=== PATIENT | female | born 1950 | race Caucasian/White ===

== ENCOUNTER 2020-07-31 16:06 | Emergency (ER) | payer OTHER, SELFPAY ==
[2020-07-31 16:20] VITALS: PULSE 90; RESP 18; TEMP 36.9; O2SAT 99
[2020-07-31 16:28] VITALS: PULSE 90; RESP 18; TEMP 36.9; O2SAT 99
--- NOTE | 2020-07-31 16:32 | ED.GENADULT ---
HPI - General Adult General Chief complaint: Skin/Abscess/Foreign Body Stated complaint: rash Source: patient Mode of arrival: ambulatory Limitations: no limitations History of Present Illness HPI narrative: Patient presents for evaluation of irritation of the skin between the breasts for the last 3 days. She states she has had similar symptoms in the past with a heat rash over the summer. She states that she does tend to perspire excessively. She does not have an underlying history of diabetes. She purchased emuaid [id number] and states in the last 24 hours she has noted approximately one third reduction in her symptoms. No new lotions, soaps, detergents, topical products which could contribute to her symptoms. She indicates she wanted to ensure that she did not have cellulitis. No difficulty breathing or swallowing. Related Data Allergies Allergy/AdvReac Type Severity Reaction Status Date / Time cephalexin [From Keflex] Allergy Rash Verified 07/31/20 16:26 Penicillins Allergy Rash Verified 07/31/20 16:25 Sulfa (Sulfonamide Allergy Rash Verified 07/31/20 16:25 Antibiotics) Review of Systems Review of Systems: Narrative: CONSTITUTIONAL: Denies fever, chills, or sweats. EYES: Denies visual changes, redness, or discharge. ENT: Denies rhinorrhea, congestion, sore throat, or otalgia. CARDIOVASCULAR: Denies chest pain, palpitations, or edema. RESPIRATORY: Denies cough or dyspnea. GASTROINTESTINAL: Denies abdominal pain, nausea, vomiting, or diarrhea. GENITOURINARY: Denies dysuria or hematuria. SKIN: Reports pruritic and erythematous changes between the breasts MUSCULOSKELETAL: Denies back pain, joint pain, or myalgia. NEUROLOGIC: Denies headache, numbness, dizziness, or weakness. PSYCHIATRIC: Denies anxiety or depression. [facility] Past Medical History Medical History (Updated 07/31/20 @ 16:39 by Jair Payne, WANG, JONY) No pertinent past medical history Surgical History Surgical History History of carpal tunnel surgery of right wrist Status post left foot surgery Family History Family History Mother No pertinent past medical history Social History Social History Smoking status: Never smoker Alcohol intake: current Alcohol use details: rarely Substance use: never Living arrangements: alone Gender identity (if verbalized by the patient): Female Spiritual care concerns: No Exam Narrative: Exam Narrative: GENERAL: Well-appearing, well-nourished, and in no acute distress. HEAD: Normocephalic, atraumatic. EYES: PERRLA and EOMI. ENT: Nares clear, no rhinorrhea or epistaxis. Mucous membranes moist. Oropharynx without tonsillar hypertrophy exudate or other lesions. Bilateral TMs pearly talamantes nonbulging NECK: Supple. No adenopathy or masses. No carotid bruits or JVD CHEST: Clear to auscultation. No respiratory distress. No wheezes rales or rhonchi HEART: Regular rate and rhythm. No murmur heard. Normal peripheral pulses. ABDOMEN: Soft, nontender, nondistended, normal active bowel sounds. EXTREMITIES: Normal range of motion. No edema. SKIN: Multiple raised erythematous papules between both breasts, too numerous to count. NEURO: No focal deficits. Alert and oriented x3. PSYCH: Normal mood and affect. Course Course Emergency Course: Interview and physical exam was conducted. Informed patient that her symptoms are most consistent with tinea brought may also be a contact dermatitis and less likely cellulitis. Will try topical antifungal. In the event that she has no clinical improvement with that she may try a topical steroid. She does have multiple drug allergies, and therefore clindamycin will be selected for cellulitis that is unlikely. I asked patient to try topicals first and reserve antibiotic fill in the
== END 2020-07-31 16:44 | disposition home or self-care (01) ==
PROVIDERS: Emergency Provider Nurse Practitioner
DX: B35.4 Tinea corporis (principal)
CPT/HCPCS: 99203; G0463

== ENCOUNTER 2024-11-30 17:12 | Emergency (ER) | payer OTHER, SELFPAY ==
--- NOTE | 2024-11-30 17:28 | ED.SKABFB ---
HPI - Skin/Abscess/Foreign Bdy General Chief complaint: Skin/Abscess/Foreign Body Stated complaint: splinter Time Seen by Provider: 11/30/24 17:55 Source: patient Mode of arrival: ambulatory Limitations: no limitations History of Present Illness HPI narrative: Jemima is a 74-year-old female patient presenting to the clinic today with complaints a possible splinter and the right index finger. She reports that this occurred yesterday when she was trying to move a branch while she was mowing. States the branch came back and hit her and she saw a splinter go into her right dorsal index finger. States she put some drawing salve on it and woke up this morning and it was swollen and red and painful. Is concerned that the splinter still may be in her finger. Denies any fevers, chills, body aches. Related Data Allergies Allergy/AdvReac Type Severity Reaction Status Date / Time bacitracin (From Triple Allergy Mild Blister Verified 11/30/24 17:53 Antibiotic) neomycin (From Triple Allergy Mild Blister Verified 11/30/24 17:53 Antibiotic) polymyxin B (From Triple Allergy Mild Blister Verified 11/30/24 17:53 Antibiotic) cephalexin (From Keflex) Allergy Rash Verified 11/30/24 17:53 Penicillins Allergy Rash Verified 11/30/24 17:53 Sulfa (Sulfonamide Allergy Rash Verified 11/30/24 17:53 Antibiotics) Review of Systems Review of Systems: Pertinent positives per HPI. Patient denies any fever, chills, rash, headache, visual changes, dizziness, cough, runny nose, sore throat, shortness of breath, chest pain, palpitations, nausea, vomiting, diarrhea, constipation, abdominal pain, or any urinary issues. [facility] Past Medical History Medical History No pertinent past medical history Surgical History Surgical History Status post left foot surgery History of carpal tunnel surgery of right wrist Family History Family History Mother No pertinent past medical history Social History Social History Smoking status: Never smoker Alcohol intake: current Alcohol use details: rarely Substance use: never Living arrangements: alone Gender identity (if verbalized by the patient): Female Spiritual care concerns: No Comments At the time of my signature, I reviewed and agree with the nursing past medical, surgical, social, and family history. There is no relevant family history pertinent to the patient complaint. Exam Narrative: General: Well-developed, well nourished, in no apparent distress Head: Normocephalic, atraumatic. Cardio: Regular rate and rhythm, s1 and s2 normal, no murmur appreciated. Resp: Clear to auscultation bilaterally, no rhonchi, rales, wheezing or rubs. Musculoskeletal: No deformity, redness, swelling,-tender to palpation over the right index finger, small open area to the top of the dorsal finger in between the DIP and PIP joint that is weeping some clear fluid, no obvious foreign body seen in the skin when illuminating the skin using the otoscope, grossly normal range of motion, muscle strength strong and equal, peripheral pulse strong, no cyanosis, normal gait and station Course Course Emergency Course: Portions of this record may have been created with voice recognition software. Level of Care: Express Care Visit Vital Signs Vital signs: Vital Signs Temperature 36.7 C 11/30/24 17:51 Pulse Rate 82 11/30/24 17:51 Respiratory Rate 18 11/30/24 17:51 Blood Pressure 157/108 H 11/30/24 17:51 Pulse Oximetry 99 11/30/24 17:51 Oxygen Delivery Room Air 11/30/24 17:51 Temperature 36.7 C 11/30/24 17:51 Pulse Rate 82 11/30/24 17:51 Respiratory Rate 18 11/30/24 17:51 Blood Pressure 157/108 H 11/30/24 17:51 Pulse Oximetry 99 11/30/24 17:51 Oxygen Delivery Room Air 11/30/24 17:51 Vital signs reviewed MDM - Skin/Abscess/Foreign Bdy MDM Narrative Medical decision making narrative: At the time of visit patient is resting comfortably on the exam table. Patient appears to be nontoxic. Plan: No obvious splinter seen in right index finger. I suspect patient has skin infection/cellulitis to the right index finger. Prescription for doxycycline was sent to the pharmacy. Supportive measures were discussed with the patient and they voiced understanding discharge instructions and agrees to treatment plan. Return precautions reviewed Spoke to patient in regards to tetanus shot after she was discharged and she states that she will get one at the pharmacy when she picks up the prescription. Differential Diagnosis Differential diagnosis: Likely abscess of skin or subcutaneous tissue, cellulitis and other (Splinter) Discharge Plan Discharge Clinical Impression: Cellulitis Qualifiers: Site of cellulitis: extremity Site of cellulitis of extremity: finger Laterality: right Qualified Code(s): L03.011 - Cellulitis of right finger Patient Disposition: Home, Self-Care Condition: Stable Instructions: Antibiotic Form, Cellulitis (ED) Additional Instructions: Unable to visualize splinter in your finger May cover with Band-Aid as needed Keep wound clean and dry Rest, ice, and elevate May take Tylenol/Motrin as needed for pain Take doxycycline as prescribed Watch for signs and symptoms of infection- redness, streaking, swelling, purulent discharge, or increase in pain. Follow up with your PCP for suture removal or return to the Express care. Patient Language: Turkish Prescriptions: New doxycycline monohydrate 100 mg capsule 100 mg PO BID 7 Days Qty: 14 0RF Follow-up/Referrals: UNKNOWN,DOCTOR [Primary Care Provider] - Time of Disposition: 18:03 Quality NIHSS Nursing Documentation ED NIHSS nursing documentation: reviewed/agree
[2024-11-30 17:51] VITALS: BP 157/108; PULSE 82; RESP 18; TEMP 36.7; O2SAT 99
--- OUTSIDE RECORDS SUMMARY | 2024-11-30 19:10 | XMS_ITS | Clinical Summary ---
Author Organization [address] Address [facility]ly [facility] [place] [address] Care Team Providers Care Adjunct Art History Instructor Name Role Phone Dago Mccloud MD Primary Care Provider [phone] Allergies Active Allergy Reactions Criticality Noted Date Comments Cephalosporins Rash,Shortness of breath High Reaction: Rash, Short of breath, Penicillins Rash,Shortness of breath High Reaction: Rash, Short of breath, Medications vitamins A,C,and E-selenium (Antioxidant A/C/E/Selenium) capsule Rx: Antioxidant Acti ve clarithromycin (BIAXIN XL ORAL) 500 mg daily 7 Active estradiol (Climara) 0.025 mg/[address] on the skin Active progesterone (Prometrium) 100 mg capsule 100 mg daily Ac tive Active Problems Problem Noted Date Diagnosed Date Tendinopathy of rotator cuff 02/02/2016 Cellulitis of leg 01/26/2016 Essential (primary) hypertension 01/26/2016 OA (osteoarthritis) of shoulder 01/26/2016 Abnormal laboratory test result 07/30/2014 Arthralgia of hip 04/21/2014 Acquired hallux rigidus 11/14/2011 Hammer toe 11/14/2011 Pain of foot 11/06/2011 Surgical History Surgery Date Site/Laterality Comments FOOT SURGERY COSMETIC SURGERY HAND SURGERY AUGMENTATION MAMMAPLASTY 09/23/2003 - 09/22/2004 Bilater al saline Family History Medical History Relation Name Comments Arthritis Father Family history of arthritis - (Added by TW Conv) Heart disease Father Family history of cardiac disorder - (Added by TW Conv) Hypertension Father Family history of hypertension - (Added by TW Conv) Arthritis Mother Family history of arthritis - (Added by TW Conv) Heart disease Mother Family history of cardiac disorder - (Added by TW Conv) Hypertension Mother Family history of hypertension - (Added by TW Conv) Relation Name Status Comments Father Mother Social History Tobacco Use Types Packs/Day Years Used Date Smoking Tobacco: Former Smokeless Tobacco: Former Alcohol Use Standard Drinks/Week Comments Yes 0 (1 standard drink = 0.6 oz pur e alcohol) Comments No Sex and Gender Information Value Date Recorded Sex Assigned at Not on file Legal Sex Female 8:33 AM CERTIFIED NURSE PRACTITIONER Gender Identity Not on file Sexual Orientation Not on file Obstetrics History Para Term AB IAB SAB Ectopic Multiple Livin g Live Births 0 0 0 0 0 0 0 0 0 0 0 Last Filed Vital Signs Vital Sign Reading Time Taken Comments Blood Pressure 160/96 03/09/2020 10:25 AM CDT Pulse 71 03/09/2020 10:25 AM CDT Temperature 35.9 C (96.6 F) 03/17/2020 1:58 PM CDT Respiratory Rate - - Oxygen Saturation 97% 03/09/2020 10:25 AM CDT Inhaled Oxygen Concentration - - Weight 78.5 kg (173 lb) 03/09/2020 10:25 AM CDT Height 160 cm (5' 3 ) 03/09/2020 10:25 AM CDT Body Mass Index 30.65 03/09/2020 10:25 AM CDT Plan of Treatment Health Maintenance Due Date Last Done Comments Colon Cancer Screening-Colonoscopy 1951 Depression Screening 1951 Fall Risk Assessment 1950 Hepatitis C Screening 1951 Hepatitis B Screening 1969 Pneumococcal vaccine 65+ (1 of 1 - PCV) 2001 Zoster Vaccine (1 of 2) 2001 DTaP/Tdap/Td Vaccine (3 - Td or Tdap) 06/13/2014, 06/13/2004 Well Visit 65+ 2016 Influenza Vaccine (#1) 2024 Breast Cancer Screening-Mammogram 11/14/2024 11/14/2023, 04/24/2018, 04/04/2016 Osteoporosis Screening-Bone Density Scan 11/14/2025 11/14/2023 Procedures Procedure Name Priority Date/Time Associated Diagnosis Comments SCREENING MAMMOGRAM BILATERAL W JACQUES W IMPLANTS Schedule Routine, Read Routine (OP Routine) 11/14/2023 2:43 PM CERTIFIED NURSE PRACTITIONER Encounter for screening mammogram for malignant neoplasm of breast DEXA AXIAL SKELETON BONE DENSITY 1 OR MORE SITES Schedule Routine, Read Routine (OP Routine) 11/14/2023 2:20 PM CERTIFIED NURSE PRACTITIONER Asymptomatic menopausal state from Last 3 Months or Most Recently Relevant to Health Maintenance Results * Screening Mammogram Bilateral W Jacques W Implants (11/14/2023 2:43 PM CERTIFIED NURSE PRACTITIONER) Anatomical Region Laterality Modality Breast Bilateral Mammography Impressions 11/14/2023 3:06 PM CERTIFIED NURSE PRACTITIONER BI-RADS ATLAS category (overall): 2 - Benign There is no mammographic evidence of malignancy. A 1 year screening mammogram is recommended. The patient has been or will be contacted. We recommend annual screening mammography for women at average risk of breast cancer beginning at age 40, based on guidelines of the [employer] (ACR Practice Parameter for the Performance of Screening and Diagnostic Mammography) and [employer]. For women with and elevated risk of breast cancer, please refer to the ACR Practice Parameter for specific screening recommendations. The patient will be entered into a reminder system with a target due date of 1 year for her next screening exam. Narrative 11/14/2023 3:06 PM CERTIFIED NURSE PRACTITIONER Screening Mammogram Bilateral W Jacques W Implants: 11/14/23 The study was acquired using full field digital technology and interpreted from soft copy. 2D digital mammographic views, as well as 3D digital tomosynthesis were performed in the CC and MLO projections. CLINICAL: Encounter for screening mammogram for malignant neoplasm of breast. No relevant medical history has been documented for this patient. No known family history of breast cancer. COMPARISONS: 12/23/2018 Diagnostic Mammogram Right W Jacques 05/22/2018 US Guided Biopsy Sentinal Node Core Superficial Not FNA Breast Related 04/30/2018 Diagnostic Mammogram Right W Jacques 04/30/2018 US Breast Right Limited 04/24/2018 Screening Mammogram Bilateral W Jacques 04/13/2016 Screening Mammogram Bilateral W Jacques BREAST TISSUE: The breasts are almost entirely fatty. FINDINGS: Bilateral breast subpectoral saline implants appear stable and intact. There is an uchanged biopsy marker clip in the right breast. There is no new suspicious finding in either breast on mammogram. Dago Mccloud MD IMG MAMMO PROCEDURES Lexis l Result * Dexa Axial Skeleton Bone Density 1 or 2 Site (11/14/2023 2:20 PM CERTIFIED NURSE PRACTITIONER) Anatomical Region Laterality Modality Body N/A Mammography 11/14/2023 4:44 PM CERTIFIED NURSE PRACTITIONER Narrative 11/14/2023 4:45 PM CERTIFIED NURSE PRACTITIONER EXAM DESCRIPTION: DEXA AXIAL SKELETON BONE DENSITY 1 OR MORE SITES REASON FOR STUDY: 73 y/o year old F with given history of: asymtomatic menopausal state Dramatic Reader/Model: Restlet A (S/N [id number]) CLINICAL INFORMATION: Current height: 60.5 inches Maximum height: 64 inches Weight: 179 pounds Risk factors: Postmenopausal, steroid use COMPARISON: None available FINDINGS: AP LUMBAR SPINE L1-L4: Total BMD is 0.816 g/cm2 T-score is -2.1 LEFT HIP: Total BMD is 0.827 g/cm2 T-score is -0.9 Femoral neck BMD is 0.807 g/cm2 T-score is -0.4 FRAX: 10 year risk for a major osteoporotic fracture is 12 %, 10 year risk for a hip fracture is 1.1 % IMPRESSION: Low Bone Mass. REFERENCE: Bone mineral density: Normal (T-score above or = -1.0) Low bone mass (T-score between -1.0 and -2.5) replaces the previously used term osteopenia Osteoporosis (T-score = or below -2.5) Please see below follow up recommendations. Medical evaluation for secondary causes of low bone mineral density may be appropriate. FRAX is a World Health Organization validated fracture risk assessment tool that calculates a person's 10 year probability of a major osteoporosis related fracture and hip fracture. According to the National Osteoporosis Foundation guidelines, postmenopausal women and men age 50 or older with low bone mass and a 10 year probability of a major osteoporosis related fracture = or greater than 20% or a 10 year probability of a hip fracture = or greater than 3% should be considered for pharmacological treatment for the prevention of osteoporosis. For further information, including treatment recommendations, please refer to the 2019 ISCD Official Positions (http://www.iscd.org) and the NOF's Clinician's Guide to Prevention and Treatment of Osteoporosis (http://www.nof.org/professionals/clinical-guidelines) THIS IS AN ELECTRONICALLY VERIFIED FINAL REPORT 11/14/2023 4:45 PM - Electronically signed by Michel Nguyễn M.D. MF: SANTOSH Report ID: [id number] Reading Location: [id number] Procedure Note Michel Nguyễn MD - 11/14/2023 EXAM DESCRIPTION: DEXA AXIAL SKELETON BONE DENSITY 1 OR MORE SITES REASON FOR STUDY: 73 y/o year old F with given history of:asymtomatic menopausal state Dramatic Reader/Model: Restlet A (S/N [id number]) CLINICAL INFORMATION: Current height: 60.5 inches Maximum height: 64 inches Weight: 179 pounds Risk factors: Postmenopausal, steroid use COMPARISON: None available FINDINGS: AP LUMBAR SPINE L1-L4: Total BMD is 0.816 g/cm2 T-score is -2.1 LEFT HIP: Total BMD is 0.827 g/cm2 T-score is -0.9 Femoral neck BMD is 0.807 g/cm2 T-score is -0.4 FRAX: 10 year risk for a major osteoporotic fracture is 12 %, 10 year risk for ahip fracture is 1.1 % IMPRESSION: Low Bone Mass. REFERENCE: Bone mineral density: Normal (T-score above or = -1.0) Low bone mass (T-score between -1.0 and -2.5) replaces thepreviously used term osteopenia Osteoporosis (T-score = or below -2.5) Please see below follow up recommendations. Medical evaluation forsecondary causes of low bone mineral density may be appropriate. FRAX is a World Health Organization validated fracture risk assessmenttool that calculates a person's 10 year probability of a major osteoporosisrelated fracture and hip fracture. According to the National OsteoporosisFoundation guidelines, postmenopausal women and men age 50 or older with low bonemass and a 10 year probability of a major osteoporosis related fracture = or greater than 20% or a 10 year probability of a hip fracture = or greaterthan 3% should be considered for pharmacological treatment for the preventionof osteoporosis. For further information, including treatment recommendations, please referto the 2019 ISCD Official Positions (http://www.iscd.org) and the NOF's Clinician's Guide to Prevention and Treatment of Osteoporosis (http://www.nof.org/professionals/clinical-guidelines) THIS IS AN ELECTRONICALLY VERIFIED FINAL REPORT 11/14/2023 4:45 PM - Electronically signed by Michel Nguyễn M.D. MF: SANTOSH Report ID: [id number] Reading Location: [place] [id number] Dago Mccloud MD IMG DXA PROCEDURES Final Result from Last 3 Months or Most Recently Relevant to Health Maintenance Insurance [facility] AETNA MEDICARE GOLD Care Teams Adjunct Art History Instructor Relationship Specialty Start Date End Date aDgo Mccloud MD [address] [place] [address] DR JEREZ [address] [place] [id number] PCP - General 12/23/18
--- OUTSIDE RECORDS SUMMARY | 2024-11-30 19:10 | XMS_ITS | Referral Summary ---
Author Organization [place] [id number] [facility] Address On license of [facility] [place] [address] Care Team Providers Care Salesperson Toy Trains And Accessories Name Role Phone Dago Mccloud MD Primary Care Provider [phone] Allergies Active Allergy Reactions Criticality Noted Date [...] Hammer toe 11/14/2011 Pain of foot 11/06/2011 Social History Tobacco Use Types Packs/Day Years Used Date Smoking Tobacco: Former Smokeless Tobacco: Former Alcohol Use Standard Drinks/Week Comments Yes 0 (1 standard drink = 0.6 oz pur e alcohol) Comments No Sex and Gender Information Value Date Recorded Sex Assigned at Not on file Legal Sex Female 8:33 AM POWER SUPERINTENDENT Gender Identity Not on file Sexual Orientation Not on file Last Filed Vital Signs Vital Sign Reading [...] 03/09/2020 10:25 AM CDT Plan of Treatment Not on file Procedures Procedure Name Priority Date/Time Associated Diagnosis Comments SCREENING MAMMOGRAM BILATERAL W JACQUES W IMPLANTS Schedule Routine, Read Routine (OP Routine) 11/14/2023 2:43 PM POWER SUPERINTENDENT Encounter for screening mammogram for malignant neoplasm of breast DEXA AXIAL SKELETON BONE DENSITY 1 OR MORE SITES Schedule Routine, Read Routine (OP Routine) 11/14/2023 2:20 PM POWER SUPERINTENDENT Asymptomatic menopausal state from Last 3 Months or Most Recently Relevant to Health Maintenance Results * Screening Mammogram Bilateral W Jacques W Implants (11/14/2023 2:43 PM POWER SUPERINTENDENT) Anatomical Region Laterality Modality Breast Bilateral Mammography Impressions 11/14/2023 3:06 PM POWER SUPERINTENDENT BI-RADS ATLAS category (overall): 2 - Benign There is no mammographic evidence of malignancy. A 1 year screening mammogram is recommended. The patient has been or will be contacted. We recommend annual screening mammography for women at average risk of breast cancer beginning at age 40, based on guidelines of the [employer] (ACR Practice Parameter for the Performance of Screening and Diagnostic Mammography) and [employer]. For women with and elevated risk of breast cancer, please refer to the ACR Practice Parameter for specific screening recommendations. The patient will be entered into a reminder system with a target due date of 1 year for her next screening exam. Narrative 11/14/2023 3:06 PM POWER SUPERINTENDENT Screening Mammogram Bilateral W Jacques W Implants: [...] either breast on mammogram. Dago Mccloud MD IM MAMMO PROCEDURES Lexis l Result * Dexa Axial Skeleton Bone Density 1 or 2 Site (11/14/2023 2:20 PM POWER SUPERINTENDENT) Anatomical Region Laterality Modality Body N/A Mammography 11/14/2023 4:44 PM POWER SUPERINTENDENT Narrative 11/14/2023 4:45 PM POWER SUPERINTENDENT EXAM DESCRIPTION: DEXA AXIAL SKELETON BONE DENSITY 1 OR MORE SITES REASON FOR STUDY: 73 y/o year old F with given history of: asymtomatic menopausal state Sap Bw Bi Developer/Model: B2Brev A (S/N [id number]) CLINICAL INFORMATION: Current height: 60.5 inches Maximum [...] Michel Nguyễn M.D. MF: SANTOSH Report ID: [id number] Reading Location: [address] Note Michel Nguyễn MD - 11/14/2023 EXAM DESCRIPTION: DEXA AXIAL SKELETON BONE DENSITY 1 OR MORE SITES REASON FOR STUDY: 73 y/o year old F with given history of:asymtomatic menopausal state Sap Bw Bi Developer/Model: B2Brev A (S/N [id number]) CLINICAL INFORMATION: Current height: 60.5 inches Maximum [...] Michel Nguyễn M.D. MF: SANTOSH Report ID: [id number] Reading Location: [place] [address] Dago Mccloud MD IM DXA PROCEDURES Final Result from Last 3 Months or Most Recently Relevant to Health Maintenance Insurance [facility] [employer] MEDICARE GOLD Care Teams Salesperson Toy Trains And Accessories Relationship Specialty Start Date End Date Dago Mccloud MD [address] [place] [address] DR JEREZ [address] [place] [id number] PCP - General 12/23/18
== END 2024-11-30 18:06 | disposition home or self-care (01) ==
PROVIDERS: Emergency Provider Nurse Practitioner Family
DX: L03.011 Cellulitis of right finger (principal)
CPT/HCPCS: 99213; G0463